=== PATIENT | female | born 1945 | race Caucasian/White ===

== ENCOUNTER 2022-09-24 12:25 | Emergency (ER) | payer MEDICARE, SELFPAY ==
[2022-09-24 12:25] VITALS: BP 110/80; PULSE 710; RESP 16; TEMP 36.2; O2SAT 99
--- NOTE | 2022-09-24 12:48 | ED.DIZZY ---
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 MD elicited complaint: dizziness and lightheadedness Timing: sudden onset Severity: mild Related Data Home Medications Medication Instructions Recorded Confirmed Unable to Obtain Home Medications 09/24/22 09/24/22 Allergies Allergy/AdvReac Type Severity Reaction Status Date / Time No Known Allergies Allergy Verified 09/24/22 12:33 Review of Systems Review of Systems: All systems reviewed & are unremarkable except as noted in HPI and below PMFSH Past Medical History Medical History Patient denies medical problems Exam Const: General: healthy appearing Nutritional Appearance: well nourished Orientation/consciousness: patient oriented x3 Limitations: no limitations HENMT: Head: normal to inspection Eyes: Conjunctivae: conjunctivae normal EOM: EOMs intact bilaterally Neck: Neck: normal visual inspection Chest: Chest palpation & inspection: normal inspection of the chest Resp: Effort & Inspection: normal respiratory effort Cardio: Rate: regular rate Rhythm: regular rhythm GI: Auscultation: normal bowel sounds : General: Yes bladder normal to palpation Urinary Catheter: Urinary Catheter: patent and draining Skin: General skin exam: normal color Rashes: no rashes Neuro: Cranial nerves: Yes Nystagmus not present Speech: normal speech Extrem: General: normal to inspection Psych: Mental Status: mental status grossly normal Course Course Emergency Course: Patient prior to assessment feels much better did have a glass of water and came inside of the cool air conditioning and feels much improved, patient will receive IV fluids and advised to get some rest. Vital Signs Vital signs: Vital Signs Temperature 36.2 C L 09/24/22 12:25 Pulse Rate 710 H 09/24/22 12:25 Respiratory Rate 16 09/24/22 12:25 Blood Pressure 110/80 09/24/22 12:25 Pulse Oximetry 99 09/24/22 12:25 Oxygen Delivery Room Air 09/24/22 12:25 Temperature 36.2 C L 09/24/22 12:25 Pulse Rate 710 H 09/24/22 12:25 Respiratory Rate 16 09/24/22 12:25 Blood Pressure 110/80 09/24/22 12:25 Pulse Oximetry 99 09/24/22 12:25 Oxygen Delivery Room Air 09/24/22 12:25 Critical Care Time Critical Care Time Critical Care Time: No Discharge Plan Discharge Clinical Impression: Dehydration Patient Disposition: Home, Self-Care Condition: Stable Instructions: Antibiotic Form, Dehydration (ED), Dizziness (ED) Additional Instructions: advised to drink plenty of fluids and follow up with primary if symptoms persist or worsen. Prescriptions: No Action Unable to Obtain Home Medications Follow-up/Referrals: Yonathan,Xu Grace MD [Primary Care Provider] - Time of Disposition: 13:03
[2022-09-24 13:18] VITALS: BP 128/78; PULSE 75; RESP 16; TEMP 36.4; O2SAT 98
== END 2022-09-24 13:22 | disposition home or self-care (01) ==
PROVIDERS: Emergency Provider Emergency Medicine; PCP Family Medicine
DX: E86.0 Dehydration (principal)
CPT/HCPCS: 99281